=== PATIENT | female | born 1995 | race Asian ===

== ENCOUNTER 2017-06-25 12:55 | Emergency (ER) | payer OTHER ==
[2017-06-25 13:08] VITALS: BP 148/101
--- NOTE | 2017-06-25 14:20 | UC ---
Laceration HPI - HPI Summary HPI Summary: 2 cm laceration right index finger mcj--cut on a glass about 1 hour prior to arrival - History Of Current Complaint Chief Complaint: UCLaceration Stated Complaint: FINGER LAC Time Seen by Provider: 06/25/17 14:12 Hx Obtained From: Patient Hx Last Menstrual Period: 4 wks ago Laceration Location: Hand Mechanism Of Injury: Sharp Trauma Onset/Duration: Sudden Onset, Still Present Severity: Mild Pain Intensity: 2 Pain Scale Used: 0-10 Numeric Aggravating Factors: Nothing Related History: Dominant Hand Right - Allergies/Home Medications Allergies/Adverse Reactions: Allergies Allergy/AdvReac Type Severity Reaction Status Date / Time No Known Allergies Allergy Verified 06/25/17 13:08 PMH/Surg Hx/FS Hx/Imm Hx Previously Healthy: No Respiratory History: Asthma - Surgical History Surgical History: Yes Surgery Procedure, Year, and Place: [place] teeth - Family History Known Family History: Positive: None - Social History Occupation: Student Lives: With Family Alcohol Use: None Substance Use Type: None Smoking Status (MU): Never Smoked Tobacco - Immunization History Most Recent Tetanus Shot: 2014 Vaccination Up to Date: Yes Review of Systems Constitutional: Negative Skin: Other - 2 cm laceration right index finger mcp joint Eyes: Negative ENT: Negative Respiratory: Negative Cardiovascular: Negative Gastrointestinal: Negative Genitourinary: Negative Motor: Negative Neurovascular: Negative Musculoskeletal: Negative Neurological: Negative Psychological: Negative All Other Systems Reviewed And Are Negative: Yes Physical Exam Triage Information Reviewed: Yes Appearance: Well-Appearing, No Pain Distress, Well-Nourished Vital Signs: Initial Vital Signs Temp 98.1 F 06/25/17 13:01 Pulse 111 06/25/17 13:01 Resp 18 06/25/17 13:01 BP 148/101 06/25/17 13:01 Pulse Ox 99 06/25/17 13:01 Vital Signs Reviewed: Yes Eye Exam: Normal Eyes: Positive: Conjunctiva Clear ENT Exam: Normal ENT: Positive: Normal ENT inspection, Hearing grossly normal. Negative: Nasal congestion, Nasal drainage, Trismus, Muffled/hoarse voice Dental Exam: Normal Neck exam: Normal Neck: Positive: Supple, Nontender, No Lymphadenopathy Respiratory Exam: Normal Respiratory: Positive: No respiratory distress, No accessory muscle use Cardiovascular Exam: Normal Cardiovascular: Positive: RRR, Pulses Normal, Brisk Capillary Refill Musculoskeletal Exam: Normal Musculoskeletal: Positive: Strength Intact, ROM Intact, No Edema Neurological Exam: Normal Neurological: Positive: Alert, Muscle Tone Normal Psychological Exam: Normal Psychological: Positive: Normal Response To Family Skin Exam: Normal Skin: Positive: Other - laceration as described Laceration Repair - Laceration Repair 1 Description: Linear Laceration Size After Repair: Length (cm) - 2, Width (mm) - 3, Depth (mm) - 3 Modified For Repair: No Type Injection: Local Anesthesia Used: 2.0% Lido - 3cc Cleansing Completed Via Routine Prep: Yes Irrigation With Pressure Irrigation Device: Yes Closure Material: Sutures Closure Method: Single Layer Suture Of: Skin Suture Type: Nylon - 4 number 5.0 suture Laceration Course/Dx - Course/Dx Course Of Treatment: mild soap and water wash, dsd, finger splint tylenol, ibuprofen return in 10-12 days for suture removal - Differential Dx - Laceration/Wound Differental Diagnoses: Abscess, Avulsion, Laceration, Tendon Laceration Provider Diagnoses: Laceration right index finger mcp joint suture repair Discharge - Discharge Plan Condition: Stable Disposition: HOME Patient Education Materials: Ibuprofen (By mouth), Care For Your Stitches (ED) , Finger Laceration (ED) Referrals: Baljit Patel MD [Primary Care Provider] - If Needed Additional Instructions: Please go to Urgent Care, [place], or primary care in 10-12 days for suture removal
[2017-06-25] MEDS ORDERED: Lidocaine/Epineph/Tetraca SOL* (LET solution) 4 ML BTL TOPICAL ONE (14:22)
[2017-06-25] MEDS ORDERED: Ibuprofen TAB* 600 MG PO ONE (15:10)
[2017-06-25] MEDS ORDERED: Lidocaine 2% PF * 5 ML VIAL INJ ONE (15:18)
== END 2017-06-25 16:18 | disposition home or self-care (01) ==
LOC: UCEAST 12:55
DX: S61.210A Laceration without foreign body of right index finger without damage to nail, initial encounter (principal); W25.XXXA Contact with sharp glass, initial encounter; Y92.9 Unspecified place or not applicable
CPT/HCPCS: 12002; 99212; A9270-GY; G0463

== ENCOUNTER 2017-07-20 12:36 | Emergency (ER) | payer OTHER ==
[2017-07-20 13:08] VITALS: BP 130/98
--- NOTE | 2017-07-20 13:17 | UC ---
Lower Extremity/Ankle HPI - HPI Summary HPI Summary: This is an obese but otherwise healthy 22 yo female who presents with c/o L ankle pain. She twisted the ankle last night while getting out the car. She has had a prior L ankle sprain. She has been walking, but with a limp. She took some ibuprofen and iced it. - History of Current Complaint Chief Complaint: UCLowerExtremity Stated Complaint: ANKLE INJURY Hx Last Menstrual Period: 07/07/17 - Allergies/Home Medications Allergies/Adverse Reactions: Allergies Allergy/AdvReac Type Severity Reaction Status Date / Time No Known Allergies Allergy Verified 07/20/17 12:57 Home Medications: Home Medications Norethindrone-Eth Estradiol (T [Tri-Norinyl 28 0.5/1/0.5-35 mg-Mcg] 1 tab PO DAILY 07/20/17 [History Confirmed 07/20/17] PMH/Surg Hx/FS Hx/Imm Hx Previously Healthy: Yes - obese - Surgical History Surgical History: None Surgery Procedure, Year, and Place: [place] teeth - Family History Known Family History: Positive: None - Social History Alcohol Use: Weekly Substance Use Type: None Smoking Status (MU): Never Smoked Tobacco - Immunization History Most Recent Tetanus Shot: 2014 Vaccination Up to Date: Yes Review of Systems Constitutional: Negative Skin: Negative Eyes: Negative ENT: Negative Respiratory: Negative Cardiovascular: Negative Gastrointestinal: Negative Genitourinary: Negative Motor: Decreased ROM Neurovascular: Negative Musculoskeletal: Arthralgia Neurological: Negative Psychological: Negative Is Patient Immunocompromised?: No All Other Systems Reviewed And Are Negative: Yes Physical Exam Triage Information Reviewed: Yes Appearance: Well-Appearing - accompanied by her father Vital Signs: Initial Vital Signs Temp 97.4 F 07/20/17 12:47 Pulse 108 07/20/17 12:47 Resp 16 07/20/17 12:47 BP 130/98 07/20/17 12:47 Pulse Ox 98 07/20/17 12:47 ENT Exam: Normal ENT: Positive: Hearing grossly normal Neck: Positive: Supple, Nontender Respiratory: Positive: Chest non-tender, Lungs clear. Negative: Crackles, Rhonchi, Wheezing Cardiovascular: Positive: RRR, No Murmur Abdomen Description: Positive: Soft Musculoskeletal: Positive: Strength Intact, Strength Limited @ - L ankle, Other : - TTP over L lateral malleolus and surrounding structures, no 5th metatarsal tenderness Neurological: Positive: Alert Psychological Exam: Normal Psychological: Positive: Normal Response To Family Skin Exam: Normal Skin: Negative: rashes Diagnostics - Laboratory Diagnostic Studies Completed/Ordered: XR L ankle - No fx Lower Extremity Course/Dx - Course Course Of Treatment: Patient complains of L ankle pain after an inversion injury yesterday. TTP over entire lateral ankle including lateral malleolus. XRs neg for fx. ROM is nearly intact with good strength and no obvious laxity. Recommend compression with DAY wrap and additional support from ankle stirrup brace. - Differential Dx/Diagnosis Differential Diagnosis/HQI/PQRI: Contusion, Dislocation, Fracture (Closed), Sprain, Strain Provider Diagnoses: 1. L ankle sprain Discharge - Discharge Plan Condition: Stable Disposition: HOME Patient Education Materials: Ankle Sprain (ED) Referrals: Baljit Patel MD [Primary Care Provider] - If Needed Additional Instructions: Activity: As tolerated Instructions: 1. Wrap ankle with DAY wrap for compression and support 2. Use ankle brace as needed for comfort and support 3. Wear supportive shoes 4. You may benefit from physical therapy, follow up with your PCP for a PT referral if you are having persistent pain or weakness 5. Apply ice frequently 6. Use ibuprofen (600-800 mg three times daily) for pain/swelling relief
--- NOTE | 2017-07-20 13:40 | RAD ---
Indication: LEFT ankle lateral malleolus and posterior pain following inversion injury. Comparison: No relevant prior exams available on the [facility] for comparison. Technique: AP, mortise, and lateral views LEFT ankle. Report: Soft tissue swelling most prominent over the anterior aspect and lateral malleolus. Suggestion of talocrural joint effusion. Negative for fracture or articular malalignment. IMPRESSION: Predominant anterolateral soft tissue swelling as well as evidence for talocrural joint effusion. Consider potential lateral supporting ligament injury.
== END 2017-07-20 14:02 | disposition home or self-care (01) ==
LOC: UCEAST 12:36
DX: S93.402A Sprain of unspecified ligament of left ankle, initial encounter (principal); X50.1XXA Overexertion from prolonged static or awkward postures, initial encounter; Y93.89 Activity, other specified; Y92.9 Unspecified place or not applicable; E66.9 Obesity, unspecified
CPT/HCPCS: 99212; G0463